=== PATIENT | female | born 1995 ===

== ENCOUNTER 2023-10-09 08:02 | Outpatient (CLI) | payer OTHER | END 2023-10-09 08:40 | disposition home or self-care (01) | LOC: PRENATAL 08:02 | PROVIDERS: ATTEND Obstetrics & Gynecology Maternal & Fetal Medicine | DX: O36.80X0 Pregnancy with inconclusive fetal viability, not applicable or unspecified (principal); Z36.9 Encounter for antenatal screening, unspecified; Z3A.12 12 weeks gestation of pregnancy ==

== ENCOUNTER 2023-12-05 13:20 | Outpatient (CLI) | payer OTHER | END 2023-12-05 13:21 | disposition home or self-care (01) | LOC: PRENATAL 13:20 | PROVIDERS: ATTEND Obstetrics & Gynecology Maternal & Fetal Medicine | DX: O35.9XX0 Maternal care for (suspected) fetal abnormality and damage, unspecified, not applicable or unspecified (principal); O35.3XX0 Maternal care for (suspected) damage to fetus from viral disease in mother, not applicable or unspecified; O44.00 Complete placenta previa NOS or without hemorrhage, unspecified trimester; Z3A.20 20 weeks gestation of pregnancy ==

== ENCOUNTER 2024-02-17 19:45 | Outpatient (CLI) | payer OTHER ==
[2024-02-17] MEDS ORDERED: FOLIC ACID1 MG (20:02)
[2024-02-17] MEDS ORDERED: RINGERS SOLUTION,LACTATED 1,000 ML IV SCH (20:45)
[2024-02-17 21:29] LABS: HEMATOCRIT 33.2 % (36.0-45.00); HEMOGLOBIN 10.9 g/dL (12.0-15.00); MEAN CELL VOLUME 86.3 fL (80.00-100.00); MEAN CORPUSCULAR HEMOGLOBIN 28.5 pg (27.00-32.0); PH,URINE 6.5 (5.0-8.0); PLATELET COUNT 156 K/uL (150-450); RED BLOOD COUNT 3.84 M/uL (4.00-6.00); RED CELL DISTRIBUTION WIDTH 13.9 % (11.5-14.5); URINE APPEARANCE Clear; URINE BILIRRUBIN Negative (NEGATIVE); URINE BLOOD Negative; URINE COLOR Yellow; URINE LEUKOCYTE Trace; URINE NITRATE Negative; URINE PROTEIN Negative (NEGATIVE); URINE UROBILINOGEN 0.2 E.U./dl
[2024-02-17 21:30] LABS: URINE BACTERIA 652.5 uL (0.0-1933); URINE EPITHELIAL CELLS 17.3 uL (0.0-38.8); URINE WBC 28.5 uL (0.0-23.2)
[2024-02-17 21:43] LABS: URINE GLUCOSE 250 MG/DL (NEGATIVE); URINE RBC 0.4 uL (0.0-20.8)
== END 2024-02-18 08:54 | disposition home or self-care (01) ==
LOC: OBS/DEL 19:45
PROVIDERS: ATTEND Obstetrics & Gynecology
DX: O26.893 Other specified pregnancy related conditions, third trimester (principal); Z3A.30 30 weeks gestation of pregnancy; R42 Dizziness and giddiness

== ENCOUNTER 2024-02-25 12:47 | Outpatient (CLI) | payer OTHER ==
[~2024-02-25 12:47] MED LIST: FOLIC ACID1 MG
== END 2024-02-25 12:48 | disposition home or self-care (01) ==
LOC: PRENATAL 12:47
PROVIDERS: ATTEND Obstetrics & Gynecology Maternal & Fetal Medicine
DX: O26.849 Uterine size-date discrepancy, unspecified trimester (principal); O36.8199 Decreased fetal movements, unspecified trimester, other fetus; Z3A.32 32 weeks gestation of pregnancy